=== PATIENT | female | born 1965 | race Caucasian/White ===

== ENCOUNTER → 2018-01-03 | Outpatient (CLI) | payer OTHER ==
[~2018-01-03] VITALS: Ht 158.8 cm; Wt 76.0 kg
[~2018-01-03] MED LIST: DESYREL 100MG100 MG PO; IRON TABLETS325 MG PO; MULTIPLE VITAMI1 CAP PO; PROTONIX 40MG T40 MG PO; VITAMIN B11000 MCG/M IM
[2018-01-03 15:29] VITALS: BP 160/90; PULSE 80
== END ==
LOC: LIGHT 14:34
DX: E66.01 Morbid (severe) obesity due to excess calories (principal); Z68.30 Body mass index [BMI] 30.0-30.9, adult; Z71.3 Dietary counseling and surveillance; R10.13 Epigastric pain; K21.9 Gastro-esophageal reflux disease without esophagitis; Z98.890 Other specified postprocedural states
CPT/HCPCS: G0463